=== PATIENT | male | born 1965 | race Two or more races ===

== ENCOUNTER 2017-11-05 20:12 | Emergency (ER) | payer OTHER ==
[~2017-11-05] VITALS: Ht 175.3 cm; Wt 133.8 kg
[~2017-11-05 20:12] MED LIST: ALB6.7R INH; AZIT1PAC21 PO; HCTZ25 PO; IBUP-1618 PO; LOR5 PO; METH4TAB57 PO; PER PO; [UNRECOGNIZED DRUG - CODE] PO
--- NOTE | 2017-11-05 20:17 | ER Report ---
History and Physical Time Seen By MD: 20:16 HPI/ROS CHIEF COMPLAINT: Cough, asthma exacerbation, chest tightness HISTORY OF PRESENT ILLNESS: 52-year-old male with a history of asthma, hypertension, hyperlipidemia on medication, presents ambulatory to the ER complaining of difficulty breathing for 2 days. He's a nonproductive cough and viral symptoms with clear rhinitis for 2 days. His nose. His asthma has been acting up. Today. She's developed some chest tightness and pain along the left upper sternal margin. He notes no nausea, diaphoresis or shortness of breath. He notes no leg swelling or calf pain. Patient denies cardiac history. REVIEW OF SYSTEMS: Respiratory: As above Cardiovascular: As above Gastrointestinal: No vomiting, no abdominal pain. Musculoskeletal: No back pain. Allergies: Coded Allergies: Fish Containing Products (Verified Allergy, Mild, 11/05/17) Penicillins (Verified Allergy, Mild, 11/05/17) Home Meds Active Scripts Prednisone (PREDNISONE) 20 Mg Tablet, 20 MG PO QDAY, #5 Prov:BOBBY FUENTES DO 11/05/17 Azithromycin 250 Mg Tab (AZITHROMYCIN 250 MG TAB) 250 Mg Tablet, 0 PO QDAY, #6 TAB TAKE 2 TABLETS ON DAY 1 AND 1 TABLET ON DAYS 2-5 Prov:BOBBY FUENTES DO 11/05/17 Reported Medications Pravastatin Sodium (PRAVACHOL) 20 Mg Tablet, 20 MG PO QDAY, TAB 11/05/17 Montelukast Sodium (SINGULAIR) 10 Mg Tablet, 1 TAB PO QDAY, TAB 11/05/17 Amlodipine Besylate (AMLODIPINE BESYLATE) 10 Mg Tablet, 1 TAB PO QDAY, TAB 11/05/17 Valsartan (Valsartan) 320 Mg Tablet, 1 TAB PO QDAY 11/05/17 Hydrochlorothiazide (Hydrochlorothiazide) 25 Mg Tab, 25 MG PO QDAY, 0 Refills 10/07/10 Albuterol Sulfate (Proventil Hfa) 6.7 Gm Aer.w.adap, 1 - 2 PUFF INH, 0 Refills 10/07/10 Discontinued Reported Medications Azithromycin (Zithromax) 1 G/Pkt Packet, 1 G PO QDAY, 0 Refills 10/07/10 Acetaminophen/Hydrocodone (Lortab 5/500) 5 Mg/500 Mg Tab, 1 TAB PO Q4-6H, 0 Refills 10/07/10 Amlodipine/Valsartan (Exforge 10-320 Mg Tablet) 1 Tab Tablet, 1 TAB PO, 0 Refills 10/07/10 Past Medical/Surgical History Asthma, hypertension, hyperlipidemia Reviewed Nurses Notes: Yes Old Medical Records Reviewed: Yes Hx Substance Use Disorder: No Hx Alcohol Use: Yes (OCC) Constitutional Vital Sign - Last 24 Hours 11/05/17 11/05/17 11/05/17 11/05/17 20:16 20:17 20:27 20:30 Temp 98.3 Pulse 104 110 Resp 18 B/P (MAP) 132/84 (100) 132/84 112/78 (89) Pulse Ox 88 90 O2 Delivery Room Air 11/05/17 11/05/17 11/05/17 11/05/17 20:42 20:52 20:57 20:57 Pulse 103 96 91 101 Resp 20 16 Pulse Ox 91 93 11/05/17 21:00 B/P (MAP) 123/89 (100) Physical Exam Vital signs stable, afebrile, pulse ox 88% on room air General Appearance: The patient is alert, has no immediate need for airway protection and no current signs of toxicity. Mild respiratory distress, prolonged expiration HEENT: Pupils equal and round no injection. TMs normal, oropharynx with mild erythema, no exudate or petechiae Respiratory: Chest is non tender, decreased lung sounds throughout, faint expiratory wheezing, prolonged expiration Cardiac: regular rate and rhythm Gastrointestinal: Abdomen is soft and non tender, no masses, bowel sounds normal. Musculoskeletal: Neck: Neck is supple and non tender. No lymphadenopathy Extremities have full range of motion and are non tender. Skin: No rashes or lesions. DIFFERENTIAL DIAGNOSIS: After history and physical exam differential diagnosis was considered for asthma exacerbation, bronchitis, pneumonia, pulmonary embolism, congestive heart failure, cardiac ischemia Medical Decision Making EKG/Imaging EKG Interpretation 12 lead EK Rhythm: normal sinus rhythm with sinus arrhythmia [place]: normal QRS: normal ST segments: normal, no evidence of ischemia or dysrhythmia ED Course/Re-evaluation ED Course Patient was admitted to an examination room. H&P was done. The differential diagnoses was considered. On clinical examination. Patient has what appears to be asthma exacerbation from a upper respiratory infection. His pulse ox is mildly low. It's improved after DuoNeb. Patient's given prednisone 40 mg. An EKG is performed. This patient complaining of chest discomfort. He's had no associated symptoms. She has several risk factors. EKG is normal sinus without evidence of ischemia. Patient be discharged home with upper respiratory infection and exacerbation of asthma. He'll be placed on prednisone 20 mg per day for 5 days as well as a Z-Jas. Patient's advised to follow-up with his primary care if unimproved in 3-5 days. Decision to Disposition Date: Nov 05, 2017 Decision to Disposition Time: 20:49 Depart Departure Latest Vital Signs Vital Signs Date Time Temp Pulse Resp B/P (MAP) Pulse Ox O2 Delivery O2 Flow Rate FiO2 11/05/17 21:00 123/89 (100) 11/05/17 20:57 101 93 11/05/17 20:57 16 11/05/17 20:17 98.3 Room Air Impression: Primary Impression: Upper respiratory infection Additional Impressions: Asthma exacerbation Chest tightness Condition: Improved Disposition: HOME OR SELF-CARE New Scripts Prednisone (PREDNISONE) 20 Mg Tablet 20 MG PO QDAY, #5 Prov: BOBBY FUENTES DO 11/05/17 Azithromycin 250 Mg Tab (AZITHROMYCIN 250 MG TAB) 250 Mg Tablet 0 PO QDAY, #6 TAB TAKE 2 TABLETS ON DAY 1 AND 1 TABLET ON DAYS 2-5 Prov: BOBBY FUENTES DO 11/05/17 Patient Instructions: Asthma (ED) Additional Instructions: Follow-up with your primary care if unimproved in 3-5 days Problem Qualifiers Primary Impression: Upper respiratory infection URI type: unspecified URI Qualified Codes: J06.9 - Acute upper respiratory infection, unspecified Additional Impressions: Asthma exacerbation Asthma severity: mild Asthma persistence: intermittent Qualified Codes: J45.21 - Mild intermittent asthma with (acute) exacerbation BOBBY FUENTES DO Nov 05, 2017 20:17
[2017-11-05] MEDS ORDERED: ALBUTEROL/IPRATROPIUM 3 ML NEB NEB ONE (20:20)
[2017-11-05] MEDS ORDERED: predniSONE 20 MG TAB PO ONE (20:20)
[2017-11-05] MEDS ORDERED: VALS320T4 PO (20:25)
[2017-11-05] MEDS ORDERED: PRAV20TA65 PO (20:26)
[2017-11-05] MEDS ORDERED: AMLO-99 PO (20:26)
[2017-11-05] MEDS ORDERED: MONT10TA PO (20:26)
[2017-11-05] MEDS ORDERED: PRED20TA6 PO (20:53)
[2017-11-05] MEDS ORDERED: AZIT-18 PO (20:53)
[2017-11-05] MEDS ORDERED: AZITHROMYCIN 250 MG TAB PO ONE (20:55)
[2017-11-05 21:00] VITALS: BP 123/89
--- NOTE | 2017-11-05 21:01 | EKG ---
FACILITY: [facility] PATIENT NAME: BIJAL DU : [id number] MR: [id number] V: [id number] EXAM DATE: ORDERING PHYSICIAN: BOBBY FUENTES TECHNOLOGIST: WALI Test Reason : SOB Blood Pressure : / mmHG Vent. Rate : 085 BPM Atrial Rate : 085 BPM P-R Int : 188 ms QRS Dur : 090 ms QT Int : 358 ms P-R-T Axes : 050 049 053 degrees QTc Int : 426 ms Sinus arrhythmia Nonspecific ST findings inferolaterally No previous ECGs available Confirmed by OLAMIDE SIMON ([id number] on 11/06/2017 5:30:59 AM Referred By: Confirmed By:OLAMIDE SIMON
== END 2017-11-05 21:07 | disposition home or self-care (01) ==
LOC: ER 20:17
DX: J06.9 Acute upper respiratory infection, unspecified (principal); J45.901 Unspecified asthma with (acute) exacerbation; R07.89 Other chest pain; I10 Essential (primary) hypertension; E78.5 Hyperlipidemia, unspecified
CPT/HCPCS: 93005; 94640; 99283; J7512; J7620; Q0144